=== PATIENT | female | born 1995 ===

== ENCOUNTER → 2019-01-19 | Outpatient (CLI) | payer BC ==
--- NOTE | 2019-01-19 23:35 | RAD ---
PELVIS W/TV History: CHRONIC PELVIC PAIN Comparison: None. Findings: Multiple transabdominal sonographic images of pelvis are submitted. Uterus measured 10.5 x 4.8 x 7.1 cm. Endometrium measured 1.1 cm. Left ovary measured 5.2 x 3.5 x 4.9 cm. There is focus of different hypoechogenicity left ovary about 4.4 x 2 x 4.4 cm. There is normal color flow and low resistance vascularity left ovary. Right ovary is not seen. Transvaginal ultrasound: Multiple transvaginal sonographic images of the pelvis are submitted. There is IUD in the endometrial cavity. Endometrium is within normal limits about 0.3 cm. No free fluid is demonstrated. Right ovary measured 1.9 x 4.1 x 1.7 cm, normal color flow and low resistance vascularity. Left ovary measured 5.7 x 2.9 x 3.8 cm. There is focus of different hypoechogenicity of the left ovary about 4.3 x 2.5 x 2.4 cm in size, some internal echoes. There is normal low resistance vascularity of the left ovary. Impression: 1. There is a complex left ovarian cyst up to 4.3 cm for which to 3 month follow-up recommended. There is no free fluid. 2. There is IUD present in the endometrial cavity. Electronically signed by: Ad Louise MD (01/19/2019 11:32 PM) [facility]
== END | disposition home or self-care (01) ==
LOC: US 14:02
PROVIDERS: ATTEND Family Medicine
DX: N83.202 Unspecified ovarian cyst, left side (principal); Z97.5 Presence of (intrauterine) contraceptive device
CPT/HCPCS: 76830; 76856